=== PATIENT | male | born 1990 ===

== ENCOUNTER 2016-12-02 11:13 | Emergency (ER) | payer OTHER, MEDICAID ==
[2016-12-02 11:18] VITALS: RESP 18
[2016-12-02] MEDS ORDERED: Sodium Chloride 0.9% 1,000 ML IV ONE (11:46)
[2016-12-02] MEDS ORDERED: Iohexol 240 (50 ml) PO STA (11:46)
[2016-12-02] MEDS ORDERED: Sodium Chloride 0.9% 1,000 ML ONE (11:51)
[2016-12-02] MEDS ORDERED: Iohexol 240 (50 ml) ONE (11:51)
[2016-12-02 12:03] LABS: RBC URINE 1 /hpf (0-3); URINE BILIRUBIN NEGATIVE (NEGATIVE); URINE BLOOD NEGATIVE (NEGATIVE); URINE COLOR Yellow (YELLOW); URINE GLUCOSE (UA) NORMAL (Normal); URINE KETONE NEGATIVE (NEGATIVE); URINE LEUKOCYTE ESTERASE NEG Leu/uL (Negative); URINE PROTEIN NEGATIVE (NEGATIVE); URINE UROBILINOGEN NORMAL mg/dL (0.2-1.0); WBC URINE < 1 /hpf (0-5)
[2016-12-02 12:15] LABS: BASO # 0.1 K/uL (0.0-0.2); BASO % 0.6 % (0.0-2.0); EOS # 0.1 K/uL (0.0-0.7); EOS % 1.4 % (0.0-4.0); HEMATOCRIT 44.4 % (35.0-51.0); LYMPH % 23.1 % (20.0-40.0); MEAN CELL VOLUME 88.7 fL (80.0-94.0); MEAN CORPUSCULAR HGB CONC 33.8 g/dL (33.0-37.0); MEAN PLATELET VOLUME 7.6 fL (7.2-11.7); MONO # 0.7 K/uL (0.0-0.8); MONO % 8.3 % (0.0-10.0); RED CELL DISTRIBUTION WIDTH 13.8 % (11.5-14.5); WHITE BLOOD COUNT 8.7 K/uL (4.8-10.8)
[2016-12-02 12:26] LABS: CHLORIDE 99 mmol/L (98-107); SODIUM 139 mmol/L (132-148)
[2016-12-02 12:28] LABS: ALKALINE PHOSPHATASE 61 U/L (38-126); AST/SGOT 30 U/L (17-59); BILIRUBIN,TOTAL 0.9 mg/dL (0.2-1.3); CARBON DIOXIDE 25 mmol/L (22-30); GFR AFRICAN-AMERICAN > 60
[2016-12-02 12:29] LABS: ALB/GLOB RATIO 1.3 (1.0-2.1); ALT/SGPT 24 U/L (21-72); BLOOD UREA NITROGEN 17 mg/dL (9-20); CALCIUM 8.7 mg/dl (8.6-10.4); GLUCOSE,RANDOM 93 mg/dL (75-110); TOTAL PROTEIN 7.4 g/dL (6.3-8.3)
[2016-12-02] MEDS ORDERED: Iodixanol 320 MG/ML 100 ML BOTTLE IV ONE (12:59)
--- NOTE | 2016-12-02 13:31 | C.PDOC ---
History Of Present Illness 26-year-old male, presents to the emergency department with complaints of abdominal pain for the past week. Associated symptoms include bright red blood in stool and with wiping. Diarrhea x 1 this morning. Pt notes that the pain is "sometimes on the left and sometimes on the right". Constant. Pain is better with food. Denies nausea/vomiting, fevers, rashes, recent travel or any other associated symptoms. No other complaints at this time. Time Seen by Provider: 12/02/16 11:20 Chief Complaint (Nursing): Abdominal Pain History Per: Patient History/Exam Limitations: no limitations Onset/Duration Of Symptoms: Days Current Symptoms Are (Timing): Still Present Severity: Moderate Past Medical History Reviewed: Historical Data, Nursing Documentation, Vital Signs Vital Signs: Last Vital Signs Temp 98.7 F 12/02/16 14:26 Pulse 68 12/02/16 14:26 Resp 18 12/02/16 14:26 BP 129/61 12/02/16 14:26 Pulse Ox 100 12/02/16 14:26 Family History: States: Unknown Family Hx - Social History Hx Alcohol Use: Yes Hx Substance Use: No - Immunization History Hx Tetanus Toxoid Vaccination: Yes Hx Influenza Vaccination: Yes Hx Pneumococcal Vaccination: Yes Review Of Systems Except As Marked, All Systems Reviewed And Found Negative. Constitutional: Negative for: Fever, Chills Cardiovascular: Negative for: Chest Pain, Palpitations Respiratory: Negative for: Cough, Shortness of Breath Gastrointestinal: Positive for: Abdominal Pain, Diarrhea. Negative for: Nausea , Vomiting Musculoskeletal: Negative for: Neck Pain, Back Pain Skin: Negative for: Rash Neurological: Negative for: Weakness, Numbness, Headache, Dizziness Physical Exam - Physical Exam Appears: Non-toxic, No Acute Distress Skin: Warm, Dry, No Rash Head: Atraumatic, Normacephalic Eye(s): bilateral: Normal Inspection, EOMI Nose: Normal Oral Mucosa: Moist Lips: Normal Appearing Neck: Normal ROM Chest: Symmetrical Cardiovascular: Rhythm Regular Respiratory: Normal Breath Sounds, No Accessory Muscle Use Gastrointestinal/Abdominal: Soft, Tenderness (lower-quadrants), Other (obese) Extremity: Normal ROM Neurological/Psych: Oriented x3, Normal Speech ED Course And Treatment - Laboratory Results Result Diagrams: 12/02/16 12:06 12/02/16 12:06 O2 Sat by Pulse Oximetry: 98 Progress Note: Bloodwork, CT Abd/Pel and UA ordered and reviewed. Patient treated with Pepcid, IVF, Zofran and Toradol. Patient feels better, on re- evaluation, abdomen is soft and non-tender. Patient will be discharged for outpatient f/u with PMD/GI. All questions answered and pt is agreeable with plan to discharge. Disposition - Disposition Referrals: Jimmie Swift MD [Staff Provider] - Gilbert Aguayo MD [Staff Provider] - Disposition: HOME/ ROUTINE Disposition Time: 14:05 Condition: STABLE Additional Instructions: Follow up with your primary medical doctor or clinic in 2-5 days for further evaluation. Take medications as prescribed. Return to the emergency department at any time if symptoms persist or worsen. Instructions: Acute Abdominal Pain (ED) - Clinical Impression Clinical Impression: Abdominal pain, Constipation - Scribe Statement The provider has reviewed the documentation as recorded by the Scribe Pako Obrien All medical record entries made by the Scribe were at my direction and personally dictated by me. I have reviewed the chart and agree that the record accurately reflects my personal performance of the history, physical exam, medical decision making, and the department course for this patient. I have also personally directed, reviewed, and agree with the discharge instructions and disposition.
--- NOTE | 2016-12-02 13:46 | CT ---
PROCEDURE: CT Abdomen and Pelvis with contrast HISTORY: abd pain COMPARISON: None. TECHNIQUE: Axial and reformatted coronal and sagittal CT images of the abdomen and pelvis were obtained after IV and oral contrast administration. This CT exam was performed using one or more of the following dose reduction techniques: Automated exposure control, adjustment of the mA and/or kv according to patient size, and/or use of iterative reconstruction technique. Contrast dose: 100 mL Visipaque 320 Radiation dose: Total exam DLP = 1119.89 mGy-cm. FINDINGS: LOWER THORAX: Unremarkable. LIVER: Unremarkable. No gross lesion or ductal dilatation. GALLBLADDER AND BILE DUCTS: Unremarkable. PANCREAS: Unremarkable. No gross lesion or ductal dilatation. SPLEEN: Unremarkable. ADRENALS: Unremarkable. No mass. KIDNEYS AND URETERS: Unremarkable. No hydronephrosis. No solid mass. VASCULATURE: Unremarkable. No aortic aneurysm. BOWEL: Unremarkable. No obstruction. No gross mural thickening. APPENDIX: Normal appendix. PERITONEUM: Unremarkable. No free fluid. No free air. LYMPH NODES: Unremarkable. No enlarged lymph nodes. BLADDER: Unremarkable. REPRODUCTIVE: Unremarkable. BONES: No acute fracture. OTHER FINDINGS: None. IMPRESSION: Mild constipation. Otherwise no evidence of acute pathology in the abdomen and pelvis.
[2016-12-02 14:28] VITALS: BP 129/61; PULSE 68; TEMP 98.7
[2016-12-02 15:27] VITALS: O2SAT 98
== END 2016-12-02 14:28 | disposition home or self-care (01) ==
LOC: C.ER 11:13
DX: K59.00 Constipation, unspecified (principal); R10.30 Lower abdominal pain, unspecified
CPT/HCPCS: 74177; 80053; 81001; 82948; 83690; 85025; 96361; 96374; 96375; 99284; G0328; J1885; J2405; J7040; Q9966; Q9967